=== PATIENT | female | born 1985 | race Caucasian/White ===

== ENCOUNTER 2016-12-16 21:16 | Emergency (ER) | payer SELFPAY ==
[~2016-12-16] VITALS: Ht 160 cm; Wt 53.0 kg
[2016-12-16 22:10] VITALS: BP 126/83
[2016-12-17] MEDS ORDERED: PENICILLN VK500 MG PO ×2 (08:02→13:38)
[2016-12-17] MEDS ORDERED: MOTRIN800 MG PO ×2 (08:02→13:38)
[2016-12-17] MEDS ORDERED: LORTAB 5-325 MG1 TAB PO (08:02)
== END 2016-12-16 22:46 | disposition left against medical advice (07) | DRG 951 ==
LOC: ED 21:16 → LWOBS 22:46
DX: Z91.19 Patient's noncompliance with other medical treatment and regimen (principal)

== ENCOUNTER 2016-12-17 06:07 | Emergency (ER) | payer SELFPAY ==
[~2016-12-17] VITALS: Ht 160 cm; Wt 53.0 kg
[2016-12-17] MEDS ORDERED: MOTRIN800 MG PO ×2 (08:02→13:38)
[2016-12-17] MEDS ORDERED: LORTAB 5-325 MG1 TAB PO (08:02)
[2016-12-17] MEDS ORDERED: PENICILLN VK500 MG PO ×2 (08:02→13:38)
[2016-12-17 08:10] VITALS: BP 129/74
== END 2016-12-17 08:10 | disposition home or self-care (01) | DRG 159 ==
LOC: ED 06:07
DX: K08.89 Other specified disorders of teeth and supporting structures (principal); F17.210 Nicotine dependence, cigarettes, uncomplicated; R22.0 Localized swelling, mass and lump, head